=== PATIENT | female | born 1990 | race African-American/Black ===

== ENCOUNTER 2016-12-13 12:56 | Emergency (ER) | payer MEDICAID ==
[~2016-12-13] VITALS: Ht 165.1 cm; Wt 70.0 kg
[2016-12-13 12:58] VITALS: BP 176/111; PULSE 84; RESP 15; TEMP 98.2; O2SAT 98
--- NOTE | 2016-12-13 14:38 | PD ---
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 She's been off Depo for couple months. She's had some intermittent bleeding since then. She has a new sexual partner. He does not have any symptoms of far she knows. She started to develop malodorous vaginal discharge and feels similar to when she's had BV in the past. History Past Medical History Narrative Medical Hypertension GERD LMP: CURRENT Social History Tobacco Use: No Allergies-Medications (Allergen,Severity, Reaction): Coded Allergies: No Known Allergies (Unverified , 12/13/16) Review of Systems Except as stated in HPI: all other systems reviewed are Neg Physical Exam Narrative GENERAL: Well-appearing 18 year-old woman, no acute distress. SKIN: Focused skin assessment warm/dry. NECK: Trachea midline. No JVD. CARDIOVASCULAR: Regular rate and rhythm. No murmur appreciated. RESPIRATORY: No accessory muscle use. Clear to auscultation. Breath sounds equal bilaterally. GASTROINTESTINAL: Abdomen soft, non-tender, nondistended. Hepatic and splenic margins not palpable. MUSCULOSKELETAL: No obvious deformities. No edema. : Scant brownish mucoid vaginal discharge. Normal external female genitalia. No uterine enlargement or adnexal masses. No CMT. Data Data Last Documented VS Vital Signs Date Time Temp Pulse Resp B/P Pulse Ox O2 Delivery O2 Flow Rate FiO2 12/13/16 12:58 98.2 84 15 176/111 98 Orders Wet Prep Profile (12/13/16 13:51) Urinalysis - C+S If Indicated (12/13/16 13:51) Ed Urine Pregnancytest Poc (12/13/16 13:51) Gc And Chlamydia Pcr (12/13/16 13:51) Labs Laboratory Tests Test 12/13/16 14:00 Urine Color YELLOW Urine Turbidity HAZY Urine pH 7.0 Urine Specific [place] 1.025 Urine Protein TRACE mg/dL Urine Glucose (UA) NEG mg/dL Urine Ketones NEG mg/dL Urine Occult Blood MOD Urine Nitrite NEG Urine Bilirubin NEG Urine Urobilinogen LESS THAN 2.0 MG/DL Urine Leukocyte Esterase TRACE Urine RBC 3 /hpf Urine WBC 7 /hpf Urine Squamous Epithelial 7 /hpf Cells Urine Bacteria RARE /hpf Urine Mucus FEW /lpf Microscopic Urinalysis Comment CULT NOT INDICATED Clue Cells (Wet Prep) NONE SEEN Vaginal Trichomonas (Wet Prep) NONE SEEN Vaginal Yeast (Wet Prep) NONE SEEN MDM Medical Decision Making Medical Screen Exam Complete: Yes Emergency Medical Condition: Yes Interpretation(s) Wet prep negative UA with a little bit of pyuria Differential Diagnosis UTI, cervicitis, vaginitis, other Narrative Course Medical decision making 18 year-old woman presents emergency Department with malodorous vaginal discharge. Concern for BV versus vaginitis or cervicitis. We'll check wet prep. FINAL: Her does not detect an abnormal number of clue cells. Clinically however he seems strongly suggestive bacterial vaginosis. I offered her. Treatment for BV versus imperative for BV and cervicitis. She liked to defer treatment for cervicitis pending the results of the cultures which I think is reasonable. Diagnosis Primary Impression: Vaginal discharge Additional Impression: BV (bacterial vaginosis) Additional Instructions: Take Flagyl as prescribed. Follow up with her [employer] doctor for routine women's care. Return to the emergency department for any new or worsening symptoms. Med/Other Pt SpecificInfo: Prescription(s) given Scripts Metronidazole (Flagyl)500 Mg [id number] Mg PO BID 7 Days Ref 0 Prov:Roman Pickens MD 12/13/16 Disposition: 01 DISCHARGE HOME Condition: Stable Roman Pickens MD Dec 13, 2016 14:38
[2016-12-13 14:44] LABS: BACTERIA, URINE RARE /hpf; BLOOD, URINE MOD (NEG); COMMENT (UR) CULT NOT INDICATED; CULTURE IF INDICATED CULT NOT INDICATED; GLUCOSE,URINE NEG (NEG); KETONE, URINE NEG (NEG); MUCUS URINE FEW /lpf (OCC); NITRITE,URINE NEG (NEG); SQUAMOUS EPITHELIAL CELL URINE 7 /hpf (0-5); URINE COLOR YELLOW (YELLW/STRAW)
[2016-12-13] MEDS ORDERED: METR-1 PO (14:54)
[2016-12-13 16:08] LABS: CHLAMYDIA PCR NOT DETECTED (NOT DETECT); NEISSERIA PCR NOT DETECTED (NOT DETECT)
== END 2016-12-13 15:13 | disposition home or self-care (01) ==
LOC: NEPD 12:56
DX: N76.0 Acute vaginitis (principal); I10 Essential (primary) hypertension; K21.9 Gastro-esophageal reflux disease without esophagitis
CPT/HCPCS: 81001; 84703; 87210; 87491; 87591; 99283